=== PATIENT | male | born 1955 | race Caucasian/White ===

== ENCOUNTER 2023-01-09 06:43 | Inpatient (IN) | payer MEDICARE, OTHER ==
[2023-01-09 07:58] LABS: Actual Bicarbonate (HCO3v) 19 mEq/L (22-28); Base Excess -4.9 mEq/L (-2.0 to +3.0); Chloride (VBG) 96 mmol/L (98-106); Hemoglobin (Hb) 11.4 g/dL (12.6-17.4); Potassium (VBG) 4.66 mmol/L (3.70-5.30); Sodium 122.5 mmol/L (133-146); pH (venous) 7.42 (7.32-7.43)
[2023-01-09 08:33] LABS: ALT (SGPT) 41 U/L (8-55); AST (SGOT) 67 U/L (5-34); Albumin 2.8 g/dL (3.4-4.8); Alkaline Phosphatase 88 U/L (40-110); Anion Gap 13 mmol/L (10-20); BUN (Urea Nitrogen) 30 mg/dL (8.4-25.7); Bilirubin, Total 2.8 mg/dL (0.2-1.2); Calc. Creatinine Clearance 0 mL/min (70-130); Calcium 8.3 mg/dL (7.8-10.44); Carbon Dioxide 19 mmol/L (23-31); Chloride 96 mmol/L (98-107); Estimated GFR 81; Globulin 4.1 g/dL (2.4-3.5); Glucose 195 mg/dL (80-115); Lipase 90 U/L (8-78); Magnesium 1.8 mg/dL (1.6-2.6); Potassium 4.6 mmol/L (3.5-5.1); Protein, Total 6.9 g/dL (5.8-8.1); Sodium 123 mmol/L (136-145)
[2023-01-09 09:08] LABS: Band 9 % (5-11); Hemoglobin 10.5 g/dL (14.0-18.0); Lymphocytes 4 % (21-51); MDiff Complete? YES; Mean Corpuscular Hemoglobin 32.1 pg (27.0-31.0); Mean Corpuscular Volume 94.2 fl (78.0-98.0); Mean Platelet Volume 7.9 fL (7.4-10.4); Monocytes 16 % (0-10); Neutrophil 71 % (42-75); Platelet Count 118 10x3/uL (130-400); Platelet Morphology Comment Appears Decreased; Polychromasia SLIGHT = 2-3 cells (100X) (0-2/hpf); RBC Distribution Width 14.4 % (11.5-14.5); Red Blood Cell (RBC) Count 3.26 mill/uL (4.70-6.10)
[2023-01-09 09:08] LABS: Bacteria/HPF None Seen HPF (None Seen); Bilirubin Negative (Negative); Blood, Urine Trace (Negative); Clarity Clear (Clear); Glucose, Urine (Dipstick) Normal (Negative); Ketone, Urine Trace mg/dL (Negative); Leukocyte Negative Leu/uL (Negative); Nitrite Negative (Negative); Protein, Urine (Dipstick) 10 mg/dL (Neg-Trace); RBC/HPF 0-3 HPF (0-3); Specific Gravity, Urine 1.019 (1.002-1.036); Squamous Epithelial 0-3 HPF (0-3); Urobilinogen Normal mg/dL (Less than 2); WBC/HPF 0-3 HPF (0-3); pH, Urine 5.5 (5.0-9.0)
[2023-01-09 11:13] LABS: Lactic Acid 2.4 mmol/L (0.5-2.2)
[2023-01-09] MEDS ORDERED: Pantoprazole 40 MG VIAL ONE (13:37)
[2023-01-09 13:51] LABS: INR-International Normal Ratio 1.2; PTT 54.1 sec (22.9-36.1); Prothrombin Time 15.8 sec (12.0-14.7)
[2023-01-09] MEDS ORDERED: Iopamidol-370 76% 500 ML 1 ML ONE (14:15)
[2023-01-09 16:33] LABS: Anion Gap 14 mmol/L (10-20); BUN (Urea Nitrogen) 28 mg/dL (8.4-25.7); CK (CPK) 363 U/L (30-200); Calc. Creatinine Clearance 0 mL/min (70-130); Calcium 8.3 mg/dL (7.8-10.44); Carbon Dioxide 19 mmol/L (23-31); Chloride 96 mmol/L (98-107); Estimated GFR 95; Glucose 211 mg/dL (80-115); Potassium 4.5 mmol/L (3.5-5.1); Sodium 124 mmol/L (136-145)
[2023-01-09 16:53] LABS: HBCM Index 0.08 S/CO (0-0.79); Hep A IgM AB Non-Reactive (NonReactive); Hep A IgM S/CO 0.22 S/CO (0-0.79); Hep B Surf Ag Non-Reactive S/CO (NonReactive); Hep C IgG Ab Non-Reactive (NonReactive); Hep C Index 0.13 S/CO (0-0.79); Hepatitis B Core IgM Abs Non-Reactive (NonReactive)
[2023-01-09] MEDS ORDERED: Dextrose 5% in Water 1,000 ML IV PRN (17:35)
[2023-01-09] MEDS ORDERED: Dextrose 50% Abboject 50 ML SYRINGE SLOW IVP PRN (17:35)
[2023-01-09] MEDS: Acetaminophen 325 MG TAB PO PRN (18:30)
[2023-01-09] MEDS: Sodium Chloride 0.9% 1,000 ML IV SCH (18:30)
[2023-01-09] MEDS: cefTRIAXone\\ROCEPHIN 1 GM in Sodium Chloride 0.9% 100 ML IVPB SCH (18:30)
[2023-01-09] MEDS: Rifaximin 550 MG TAB PO SCH (21:09)
[2023-01-09 23:05] LABS: Anion Gap 14 mmol/L (10-20); BUN (Urea Nitrogen) 27 mg/dL (8.4-25.7); Calc. Creatinine Clearance 104 mL/min (70-130); Calcium 8.2 mg/dL (7.8-10.44); Carbon Dioxide 18 mmol/L (23-31); Chloride 100 mmol/L (98-107); Estimated GFR 80; Glucose 278 mg/dL (80-115); Potassium 4.4 mmol/L (3.5-5.1); Sodium 128 mmol/L (136-145)
[2023-01-10] MEDS: Sodium Chloride 0.9% 1,000 ML IV SCH ×3 (05:27→20:25)
[2023-01-10] MEDS: HumaLOG 300 UNITS/3 ML VIAL SC PRN ×4 (05:35→20:24)
[2023-01-10 07:41] LABS: Hemoglobin 10.5 g/dL (14.0-18.0); Mean Corpuscular HGB CONC 33.8 g/dL (32.0-36.0); Mean Corpuscular Hemoglobin 32.3 pg (27.0-31.0); Mean Corpuscular Volume 95.4 fl (78.0-98.0); RBC Distribution Width 14.5 % (11.5-14.5); Red Blood Cell (RBC) Count 3.26 mill/uL (4.70-6.10)
[2023-01-10 07:47] LABS: ALT (SGPT) 34 U/L (8-55); AST (SGOT) 41 U/L (5-34); Albumin 2.3 g/dL (3.4-4.8); Alkaline Phosphatase 92 U/L (40-110); Anion Gap 11 mmol/L (10-20); BUN (Urea Nitrogen) 25 mg/dL (8.4-25.7); Bilirubin, Total 1.7 mg/dL (0.2-1.2); Calc. Creatinine Clearance 115 mL/min (70-130); Calcium 8.3 mg/dL (7.8-10.44); Carbon Dioxide 20 mmol/L (23-31); Chloride 102 mmol/L (98-107); Estimated GFR 91; Glucose 326 mg/dL (80-115); Iron 24 ug/dL (65-175); Iron Binding Capacity, Total 184 mcg/dL (261-462); Protein, Total 6.3 g/dL (5.8-8.1); Sodium 129 mmol/L (136-145)
[2023-01-10 08:02] LABS: Ferritin 411.63 ng/mL (22-322)
[2023-01-10 08:04] LABS: HBSAB Concentration Less than 8.00 mIU/mL; Hep B Surf AB Non-Reactive (NonReactive)
[2023-01-10] MEDS: Rifaximin 550 MG TAB PO SCH ×2 (08:43→20:23)
[2023-01-10 10:53] LABS: Band 4 % (5-11); Lymphocytes 4 % (21-51); MDiff Complete? YES; Mean Platelet Volume 8.1 fL (7.4-10.4); Monocytes 16 % (0-10); Neutrophil 76 % (42-75); Platelet Count 113 10x3/uL (130-400); Platelet Morphology Comment Appears Decreased; Vacuoles SLIGHT; White Blood Cell (WBC) Count 10.1 10x3/uL (4.8-10.8)
[2023-01-10] MEDS: Bisacodyl 10 MG SUPP PR SCH ×2 (14:43→23:27)
[2023-01-10] MEDS: cefTRIAXone\\ROCEPHIN 1 GM in Sodium Chloride 0.9% 100 ML IVPB SCH (14:43)
[2023-01-10] MEDS ORDERED: Vancomycin HCl 1 GM in Sodium Chloride 0.9% 250 ML 250 ML IVPB SCH (15:00)
[2023-01-10 15:42] LABS: ANA Symphony (Qualitative) Negative (Negative); ANA Symphony (Quantitative) 0.5 Ratio (< 0.7 Negative); EliA Vaculitis New Method **** NEW METHOD ****; Mitochondrial Ab 1.6 U/mL (<4 Negative); dsDNA IgG Antibody 1.9 IU/mL (<10 Negative)
[2023-01-10] MEDS: Vancomycin 1.5 GRAM/300 ML BAG 1.5 GM in Premix Bag 1 BAG IVPB SCH (16:26)
[2023-01-10] MEDS: Melatonin 3 MG TAB PO PRN (23:27)
[2023-01-11] MEDS: Sodium Chloride 0.9% 1,000 ML IV SCH ×2 (02:02→10:25)
[2023-01-11] MEDS: Vancomycin 1.5 GRAM/300 ML BAG 1.5 GM in Premix Bag 1 BAG IVPB SCH ×2 (02:05→17:29)
[2023-01-11] MEDS ORDERED: Morphine 4 MG/ML VIAL SLOW IVP SCH (05:00)
[2023-01-11] MEDS ORDERED: traMADol HCl 50 MG TAB PO SCH (05:15)
[2023-01-11] MEDS: Bisacodyl 10 MG SUPP PR SCH ×3 (06:04→17:32)
[2023-01-11] MEDS: HumaLOG 300 UNITS/3 ML VIAL SC PRN ×4 (06:05→20:50)
[2023-01-11 07:06] LABS: Hemoglobin 10.8 g/dL (14.0-18.0); Mean Corpuscular HGB CONC 33.8 g/dL (32.0-36.0); Mean Corpuscular Hemoglobin 32.4 pg (27.0-31.0); Mean Corpuscular Volume 95.7 fl (78.0-98.0); Platelet Count 121 10x3/uL (130-400); RBC Distribution Width 14.5 % (11.5-14.5); Red Blood Cell (RBC) Count 3.34 mill/uL (4.70-6.10)
[2023-01-11 07:08] LABS: ALT (SGPT) 33 U/L (8-55); AST (SGOT) 33 U/L (5-34); Albumin 2.4 g/dL (3.4-4.8); Alkaline Phosphatase 94 U/L (40-110); Anion Gap 11 mmol/L (10-20); BUN (Urea Nitrogen) 23 mg/dL (8.4-25.7); Bilirubin, Total 1.3 mg/dL (0.2-1.2); Calc. Creatinine Clearance 119 mL/min (70-130); Calcium 8.1 mg/dL (7.8-10.44); Carbon Dioxide 21 mmol/L (23-31); Chloride 100 mmol/L (98-107); Estimated GFR 94; Globulin 3.9 g/dL (2.4-3.5); Glucose 287 mg/dL (80-115); Potassium 3.8 mmol/L (3.5-5.1); Protein, Total 6.3 g/dL (5.8-8.1); Sodium 128 mmol/L (136-145)
[2023-01-11 07:18] LABS: Hemoglobin A1c 7.4 % (4.0-6.0)
[2023-01-11 08:27] LABS: Band 24 % (5-11); Lymphocytes 9 % (21-51); MDiff Complete? YES; Metamyelocyte 1 % (0-0); Monocytes 10 % (0-10); Myelocyte 1 % (0-0); Neutrophil 54 % (42-75); Platelet Morphology Comment Appears Decreased; RBC Morphology Normal; Reactive Lymphocytes 1 % (0-10)
[2023-01-11] MEDS: Rifaximin 550 MG TAB PO SCH ×2 (10:17→20:50)
[2023-01-11] MEDS ORDERED: Mineral Oil ENEMA PR SCH (12:45)
[2023-01-11 14:37] LABS: Alpha-1-Antitrypsin 228 mg/dL (101-187)
[2023-01-11] MEDS: cefTRIAXone\\ROCEPHIN 1 GM in Sodium Chloride 0.9% 100 ML IVPB SCH (16:17)
[2023-01-11] MEDS: Melatonin 3 MG TAB PO PRN (20:50)
[2023-01-12 02:03] LABS: #Eosinphils 0.1 thou/uL (0.0-0.7); #Lymphocytes 1.1 thou/uL (1.20-3.40); #Monocytes 1.6 thou/uL (0.11-0.59); #Neutrophils 8.2 thou/uL (1.40-6.50); %Basophils 0.1 % (0.0-1.0); %Lymphocytes 9.6 % (21.0-51.0); %Monocytes 14.4 % (0.0-10.0); %Neutrophils 74.9 % (42.0-75.0); Hemoglobin 10.9 g/dL (14.0-18.0); Mean Corpuscular HGB CONC 34.1 g/dL (32.0-36.0); Mean Corpuscular Hemoglobin 32.5 pg (27.0-31.0); Mean Corpuscular Volume 95.1 fl (78.0-98.0); Mean Platelet Volume 8.1 fL (7.4-10.4); Platelet Count 146 10x3/uL (130-400); RBC Distribution Width 14.3 % (11.5-14.5); Red Blood Cell (RBC) Count 3.35 mill/uL (4.70-6.10); White Blood Cell (WBC) Count 10.9 10x3/uL (4.8-10.8)
[2023-01-12 02:23] LABS: Vancomycin, Trough 20.3 ug/mL
[2023-01-12 02:38] LABS: Anion Gap 14 mmol/L (10-20); BUN (Urea Nitrogen) 20 mg/dL (8.4-25.7); Calc. Creatinine Clearance 115 mL/min (70-130); Carbon Dioxide 17 mmol/L (23-31); Chloride 103 mmol/L (98-107); Estimated GFR 91; Glucose 282 mg/dL (80-115); Potassium 3.6 mmol/L (3.5-5.1); Sodium 130 mmol/L (136-145)
[2023-01-12] MEDS: VANCOMYCIN 1.25 GM/250 ML BAG 1.25 GM in Premix Bag 1 BAG IVPB SCH ×2 (03:03→16:16)
[2023-01-12] MEDS: Bisacodyl 10 MG SUPP PR SCH ×4 (05:18→23:04)
[2023-01-12] MEDS: HumaLOG 300 UNITS/3 ML VIAL SC PRN ×4 (06:10→20:49)
[2023-01-12] MEDS: Rifaximin 550 MG TAB PO SCH ×2 (08:27→20:44)
[2023-01-12 11:15] LABS: Smooth Muscle Total ABS 7 Units (0-19)
[2023-01-12] MEDS ORDERED: Insulin Glargine 30 UNITS/0.3 ML VIAL SC SCH ×2 (14:15→21:00)
[2023-01-12] MEDS ORDERED: Senokot S 8.6-50 MG TAB PO SCH (15:00)
[2023-01-12] MEDS ORDERED: Mineral Oil ENEMA PR SCH (15:00)
[2023-01-12] MEDS: cefTRIAXone\\ROCEPHIN 1 GM in Sodium Chloride 0.9% 100 ML IVPB SCH (15:04)
[2023-01-12] MEDS: Senokot S 8.6-50 MG TAB PO SCH (20:44)
[2023-01-13] MEDS: Acetaminophen 325 MG TAB PO PRN (05:24)
[2023-01-13] MEDS: HumaLOG 300 UNITS/3 ML VIAL SC PRN ×4 (05:24→20:15)
[2023-01-13 07:38] LABS: Anion Gap 12 mmol/L (10-20); BUN (Urea Nitrogen) 17 mg/dL (8.4-25.7); Calc. Creatinine Clearance 131 mL/min (70-130); Carbon Dioxide 19 mmol/L (23-31); Chloride 102 mmol/L (98-107); Estimated GFR 97; Glucose 264 mg/dL (80-115); Hemoglobin 10.5 g/dL (14.0-18.0); Mean Corpuscular HGB CONC 34.2 g/dL (32.0-36.0); Mean Corpuscular Hemoglobin 32.3 pg (27.0-31.0); Mean Corpuscular Volume 94.4 fl (78.0-98.0); Mean Platelet Volume 7.5 fL (7.4-10.4); Platelet Count 156 10x3/uL (130-400); Potassium 3.8 mmol/L (3.5-5.1); RBC Distribution Width 14.2 % (11.5-14.5); Red Blood Cell (RBC) Count 3.26 mill/uL (4.70-6.10); Sodium 129 mmol/L (136-145); White Blood Cell (WBC) Count 11.9 10x3/uL (4.8-10.8)
[2023-01-13 08:36] LABS: Band 14 % (5-11); Eosinophils 1 % (0-10); Lymphocytes 10 % (21-51); MDiff Complete? YES; Monocytes 13 % (0-10); Neutrophil 62 % (42-75); Platelet Morphology Comment Appears Adequate; Polychromasia SLIGHT = 2-3 cells (100X) (0-2/hpf)
[2023-01-13] MEDS: Senokot S 8.6-50 MG TAB PO SCH ×2 (08:47→20:13)
[2023-01-13] MEDS: Rifaximin 550 MG TAB PO SCH ×2 (08:47→20:13)
[2023-01-13] MEDS: Bisacodyl 10 MG SUPP PR SCH ×3 (08:54→20:16)
[2023-01-13] MEDS ORDERED: Insulin Glargine 30 UNITS/0.3 ML VIAL SC SCH (09:00)
[2023-01-13] MEDS ORDERED: cefTRIAXone\\ROCEPHIN 2 GM in Sodium Chloride 0.9% 100 ML IVPB SCH (15:00)
[2023-01-13] MEDS: Melatonin 3 MG TAB PO PRN (20:13)
[2023-01-13] MEDS: Insulin Glargine 30 UNITS/0.3 ML VIAL SC SCH (20:14)
[2023-01-14] MEDS: Bisacodyl 10 MG SUPP PR SCH ×3 (07:19→23:11)
[2023-01-14] MEDS: HumaLOG 300 UNITS/3 ML VIAL SC PRN (07:19)
[2023-01-14 07:37] LABS: Hemoglobin 10.9 g/dL (14.0-18.0); Mean Corpuscular HGB CONC 34.2 g/dL (32.0-36.0); Mean Corpuscular Hemoglobin 32.5 pg (27.0-31.0); Mean Corpuscular Volume 94.9 fl (78.0-98.0); Mean Platelet Volume 7.6 fL (7.4-10.4); Platelet Count 223 10x3/uL (130-400); RBC Distribution Width 14.5 % (11.5-14.5); Red Blood Cell (RBC) Count 3.36 mill/uL (4.70-6.10); White Blood Cell (WBC) Count 14.6 10x3/uL (4.8-10.8)
[2023-01-14 07:56] LABS: ALT (SGPT) 65 U/L (8-55); AST (SGOT) 75 U/L (5-34); Albumin 2.2 g/dL (3.4-4.8); Alkaline Phosphatase 153 U/L (40-110); Anion Gap 12 mmol/L (10-20); BUN (Urea Nitrogen) 16 mg/dL (8.4-25.7); Bilirubin, Total 1.4 mg/dL (0.2-1.2); Calc. Creatinine Clearance 134 mL/min (70-130); Calcium 8.3 mg/dL (7.8-10.44); Carbon Dioxide 20 mmol/L (23-31); Chloride 102 mmol/L (98-107); Estimated GFR 98; Globulin 4.4 g/dL (2.4-3.5); Glucose 181 mg/dL (80-115); Lipase 59 U/L (8-78); Protein, Total 6.6 g/dL (5.8-8.1); Sodium 130 mmol/L (136-145)
[2023-01-14 08:05] LABS: Band 10 % (5-11); Eosinophils 1 % (0-10); Lymphocytes 9 % (21-51); MDiff Complete? YES; Monocytes 11 % (0-10); Myelocyte 1 % (0-0); Neutrophil 67 % (42-75); Platelet Morphology Comment Appears Adequate; Polychromasia SLIGHT = 2-3 cells (100X) (0-2/hpf); Reactive Lymphocytes 1 % (0-10); Toxic Granulation SLIGHT
[2023-01-14] MEDS: Insulin Glargine 30 UNITS/0.3 ML VIAL SC SCH ×2 (09:27→22:28)
[2023-01-14] MEDS: Senokot S 8.6-50 MG TAB PO SCH ×2 (09:28→22:49)
[2023-01-14] MEDS: Rifaximin 550 MG TAB PO SCH ×2 (09:29→22:28)
[2023-01-14] MEDS ORDERED: metroNIDAZOLE 500 MG in Premix Bag 1 BAG IVPB SCH (15:00)
[2023-01-14] MEDS ORDERED: Piperacillin/Tazobactam 3.375 GM in Sodium Chloride 0.9% 100 ML IVPB SCH ×4 (15:00→20:00)
[2023-01-14 15:26] LABS: Lactic Acid 1.6 mmol/L (0.5-2.2)
[2023-01-14] MEDS ORDERED: Midazolam HCl 2 mg/2 ml Vial ONE (15:46)
[2023-01-14] MEDS ORDERED: Fentanyl 250 MCG/5 ML VIAL ONE (15:46)
[2023-01-14] MEDS ORDERED: Albumin 5% 1,000 ML ONE (15:47)
[2023-01-14] MEDS ORDERED: Dexmedetomidine 200 MCG/2 ML VIAL ONE (15:47)
[2023-01-14 16:41] LABS: Prothrombin Time Greater than 150.0 sec (12.0-14.7)
[2023-01-14 16:42] LABS: PTT Greater than 250.0 sec (22.9-36.1)
[2023-01-14] MEDS ORDERED: Lidocaine 1% PF 5 ML VIAL ONE (16:47)
[2023-01-14] MEDS ORDERED: PROPOFOL 200 MG/20 ML VIAL ONE (16:47)
[2023-01-14] MEDS ORDERED: Succinylcholine Chloride 100 MG/5 ML SYRINGE FS ONE (16:47)
[2023-01-14] MEDS ORDERED: Rocuronium Bromide 10 MG/ML (10ML VIAL) ONE (16:47)
[2023-01-14] MEDS ORDERED: PHENYLEPHRINE-NS 100 MCG/ML 10 ML SYRINGE ONE (16:47)
[2023-01-14 17:55] LABS: INR-International Normal Ratio 1.4; Prothrombin Time 17.6 sec (12.0-14.7)
[2023-01-14 17:56] LABS: PTT 53.2 sec (22.9-36.1)
[2023-01-14] MEDS ORDERED: Phytonadione 10 MG/ML AMP SLOW IVP SCH (18:30)
[2023-01-14] MEDS ORDERED: Propofol 1,000 MG/100 ML VIAL IV ONE (19:04)
[2023-01-14 19:10] LABS: Base Excess (BEa) -1.5 mEq/L (-2.0 to +3.0); CO2 Tension 37.7 mmHg (35.0-45.0); Calcium, Ionized (arterial) 1.09 mmol/L (1.12-1.30); Carboxyhemoglobin (COHb) 0.5 gm% (0.0-3.0); Hemoglobin (Hb) 8.9 g/dL (14.0-18.0); O2 Tension (PaO2), arterial 85.4 mmHg (> 80.0); Potassium - ABG Lab 4.16 mmol/L (3.70-5.30)
[2023-01-14 19:11] LABS: Puncture Site Arterial Line
[2023-01-14 19:12] LABS: ALV-art Gradient 152.675 mmHg (0-20)
[2023-01-14 19:21] LABS: #Eosinphils 0.1 thou/uL (0.0-0.7); #Lymphocytes 0.6 thou/uL (1.20-3.40); #Monocytes 0.7 thou/uL (0.11-0.59); #Neutrophils 5.5 thou/uL (1.40-6.50); %Basophils 0.1 % (0.0-1.0); %Eosinophils 1.8 % (0.0-10.0); %Lymphocytes 8.8 % (21.0-51.0); %Monocytes 9.7 % (0.0-10.0); %Neutrophils 79.7 % (42.0-75.0); Hemoglobin 8.1 g/dL (14.0-18.0); Mean Corpuscular HGB CONC 33.8 g/dL (32.0-36.0); Mean Corpuscular Hemoglobin 32.3 pg (27.0-31.0); Mean Corpuscular Volume 95.6 fl (78.0-98.0); Platelet Count 127 10x3/uL (130-400); RBC Distribution Width 14.4 % (11.5-14.5); Red Blood Cell (RBC) Count 2.52 mill/uL (4.70-6.10); White Blood Cell (WBC) Count 6.9 10x3/uL (4.8-10.8)
[2023-01-14] MEDS ORDERED: Morphine 2 MG/ML VIAL SLOW IVP PRN (20:15)
[2023-01-14] MEDS ORDERED: Propofol BOLUS 1,000 MG/100 ML VIAL IV PRN (20:15)
[2023-01-14] MEDS ORDERED: DISCONTINUE PREVIOUS NARCOTIC PAIN MEDICATIONS AND BENZODIAZEPINES FS SCH (20:15)
[2023-01-14] MEDS ORDERED: Propofol 1,000 MG/100 ML VIAL IV PRN (20:15)
[2023-01-14] MEDS ORDERED: Lorazepam 2 MG/ML VIAL SLOW IVP PRN (20:15)
[2023-01-14] MEDS ORDERED: Fentanyl CADD 100 ML IV SCH (20:15)
[2023-01-14] MEDS ORDERED: Fentanyl BOLUS 250 ML IVPB PRN (20:15)
[2023-01-14] MEDS: Sodium Chloride 0.9% 1,000 ML IV SCH (20:48)
[2023-01-14] MEDS: Famotidine/PF 20 mg/2ml Vial SLOW IVP SCH (22:27)
[2023-01-14 23:48] LABS: #Basophils 0.1 thou/uL (0.0-0.2); #Eosinphils 0.1 thou/uL (0.0-0.7); #Lymphocytes 0.9 thou/uL (1.20-3.40); #Monocytes 0.7 thou/uL (0.11-0.59); #Neutrophils 5.5 thou/uL (1.40-6.50); %Basophils 1.9 % (0.0-1.0); %Eosinophils 1.1 % (0.0-10.0); %Lymphocytes 12.4 % (21.0-51.0); %Neutrophils 75.7 % (42.0-75.0); Hemoglobin 8.2 g/dL (14.0-18.0); Mean Corpuscular HGB CONC 34.3 g/dL (32.0-36.0); Mean Corpuscular Hemoglobin 32.7 pg (27.0-31.0); Mean Corpuscular Volume 95.3 fl (78.0-98.0); Mean Platelet Volume 7.5 fL (7.4-10.4); Platelet Count 121 10x3/uL (130-400); RBC Distribution Width 14.4 % (11.5-14.5); White Blood Cell (WBC) Count 7.3 10x3/uL (4.8-10.8)
[2023-01-14 23:59] LABS: INR-International Normal Ratio 1.3; Prothrombin Time 16.8 sec (12.0-14.7)
[2023-01-15] LABS: PTT 47.1 sec (22.9-36.1)
[2023-01-15] MEDS: Sodium Chloride 0.9% 1,000 ML IV SCH ×3 (00:19→18:14)
[2023-01-15] MEDS: Piperacillin/Tazobactam 3.375 GM in Sodium Chloride 0.9% 100 ML IVPB SCH ×3 (03:04→20:39)
[2023-01-15 03:53] LABS: #Basophils 0.2 thou/uL (0.0-0.2); #Eosinphils 0.1 thou/uL (0.0-0.7); #Lymphocytes 0.8 thou/uL (1.20-3.40); #Monocytes 0.7 thou/uL (0.11-0.59); #Neutrophils 5.6 thou/uL (1.40-6.50); %Basophils 2.2 % (0.0-1.0); %Eosinophils 1.4 % (0.0-10.0); %Lymphocytes 10.6 % (21.0-51.0); %Monocytes 9.9 % (0.0-10.0); Hemoglobin 8.5 g/dL (14.0-18.0); Mean Corpuscular Hemoglobin 32.4 pg (27.0-31.0); Mean Corpuscular Volume 95.3 fl (78.0-98.0); Mean Platelet Volume 7.5 fL (7.4-10.4); Platelet Count 120 10x3/uL (130-400); RBC Distribution Width 14.4 % (11.5-14.5); Red Blood Cell (RBC) Count 2.63 mill/uL (4.70-6.10); White Blood Cell (WBC) Count 7.4 10x3/uL (4.8-10.8)
[2023-01-15 04:12] LABS: ALT (SGPT) 37 U/L (8-55); AST (SGOT) 36 U/L (5-34); Albumin 2.5 g/dL (3.4-4.8); Alkaline Phosphatase 90 U/L (40-110); Anion Gap 8 mmol/L (10-20); BUN (Urea Nitrogen) 16 mg/dL (8.4-25.7); Bilirubin, Total 1.3 mg/dL (0.2-1.2); Calc. Creatinine Clearance 143 mL/min (70-130); Calcium 7.9 mg/dL (7.8-10.44); Carbon Dioxide 24 mmol/L (23-31); Chloride 108 mmol/L (98-107); Estimated GFR 100; Globulin 3.3 g/dL (2.4-3.5); Glucose 162 mg/dL (80-115); Potassium 3.9 mmol/L (3.5-5.1); Protein, Total 5.8 g/dL (5.8-8.1); Sodium 136 mmol/L (136-145)
[2023-01-15] MEDS: Bisacodyl 10 MG SUPP PR SCH ×3 (07:10→22:34)
[2023-01-15 07:34] LABS: Magnesium 2.1 mg/dL (1.6-2.6); Phosphorus 2.8 mg/dL (2.3-4.7)
[2023-01-15] MEDS: Famotidine/PF 20 mg/2ml Vial SLOW IVP SCH ×2 (08:48→20:46)
[2023-01-15] MEDS: Rifaximin 550 MG TAB PO SCH ×2 (08:48→20:47)
[2023-01-15] MEDS: Senokot S 8.6-50 MG TAB PO SCH ×2 (08:51→20:46)
[2023-01-15] MEDS: Insulin Glargine 30 UNITS/0.3 ML VIAL SC SCH ×2 (08:52→21:12)
[2023-01-15] MEDS ORDERED: Sodium Phosphate 15 MMOL in Sodium Chloride 0.9% 250 ML 250 ML IVPB SCH (09:00)
[2023-01-15] MEDS ORDERED: Morphine 2 MG/ML VIAL SLOW IVP PRN (09:04)
[2023-01-15] MEDS ORDERED: Morphine 4 MG/ML VIAL SLOW IVP PRN (09:04)
[2023-01-15 10:38] LABS: INR-International Normal Ratio 1.2; PTT 47.5 sec (22.9-36.1)
[2023-01-15 13:48] VITALS: BMI 35.2
[2023-01-15] MEDS: Melatonin 3 MG TAB PO PRN (20:46)
[2023-01-16] MEDS: Sodium Chloride 0.9% 1,000 ML IV SCH (02:52)
[2023-01-16] MEDS: Piperacillin/Tazobactam 3.375 GM in Sodium Chloride 0.9% 100 ML IVPB SCH ×3 (04:20→22:53)
[2023-01-16 04:49] LABS: #Eosinphils 0.1 thou/uL (0.0-0.7); #Lymphocytes 0.7 thou/uL (1.20-3.40); #Monocytes 0.8 thou/uL (0.11-0.59); #Neutrophils 5.2 thou/uL (1.40-6.50); %Basophils 0.2 % (0.0-1.0); %Eosinophils 1.1 % (0.0-10.0); %Lymphocytes 10.3 % (21.0-51.0); %Monocytes 12.1 % (0.0-10.0); %Neutrophils 76.2 % (42.0-75.0); Hemoglobin 8.7 g/dL (14.0-18.0); Mean Corpuscular HGB CONC 33.9 g/dL (32.0-36.0); Mean Corpuscular Hemoglobin 32.9 pg (27.0-31.0); Mean Platelet Volume 7.5 fL (7.4-10.4); Platelet Count 142 10x3/uL (130-400); RBC Distribution Width 14.6 % (11.5-14.5); Red Blood Cell (RBC) Count 2.64 mill/uL (4.70-6.10); White Blood Cell (WBC) Count 6.9 10x3/uL (4.8-10.8)
[2023-01-16 05:15] LABS: ALT (SGPT) 32 U/L (8-55); AST (SGOT) 30 U/L (5-34); Albumin 2.3 g/dL (3.4-4.8); Alkaline Phosphatase 83 U/L (40-110); Anion Gap 11 mmol/L (10-20); BUN (Urea Nitrogen) 16 mg/dL (8.4-25.7); Bilirubin, Total 1.6 mg/dL (0.2-1.2); Calc. Creatinine Clearance 150 mL/min (70-130); Carbon Dioxide 22 mmol/L (23-31); Chloride 113 mmol/L (98-107); Estimated GFR 100; Globulin 3.6 g/dL (2.4-3.5); Glucose 95 mg/dL (80-115); Magnesium 2.2 mg/dL (1.6-2.6); Phosphorus 2.6 mg/dL (2.3-4.7); Potassium 3.8 mmol/L (3.5-5.1); Protein, Total 5.9 g/dL (5.8-8.1); Sodium 142 mmol/L (136-145)
[2023-01-16] MEDS ORDERED: Potassium Phosphate 15 MMOL in Sodium Chloride 0.9% 100 ML IVPB SCH (07:30)
[2023-01-16] MEDS: Spironolactone 25 MG TAB PO SCH ×2 (07:57→16:27)
[2023-01-16] MEDS: Furosemide 40 MG TAB PO SCH (07:57)
[2023-01-16] MEDS ORDERED: traMADol HCl 50 MG TAB PO PRN (07:58)
[2023-01-16] MEDS ORDERED: Morphine 4 MG/ML VIAL SLOW IVP PRN (07:58)
[2023-01-16] MEDS: Bisacodyl 10 MG SUPP PR SCH ×3 (08:01→22:55)
[2023-01-16] MEDS: Senokot S 8.6-50 MG TAB PO SCH ×2 (08:27→22:55)
[2023-01-16] MEDS: Rifaximin 550 MG TAB PO SCH ×2 (08:27→22:58)
[2023-01-16] MEDS: Insulin Glargine 30 UNITS/0.3 ML VIAL SC SCH ×2 (08:29→22:55)
[2023-01-16] MEDS: Famotidine/PF 20 mg/2ml Vial SLOW IVP SCH ×2 (08:32→22:54)
[2023-01-17] MEDS: Piperacillin/Tazobactam 3.375 GM in Sodium Chloride 0.9% 100 ML IVPB SCH ×3 (04:30→21:08)
[2023-01-17 07:52] LABS: #Eosinphils 0.1 thou/uL (0.0-0.7); #Lymphocytes 0.7 thou/uL (1.20-3.40); #Monocytes 0.8 thou/uL (0.11-0.59); %Basophils 0.2 % (0.0-1.0); %Eosinophils 1.6 % (0.0-10.0); %Lymphocytes 10.9 % (21.0-51.0); %Neutrophils 75.3 % (42.0-75.0); Hemoglobin 8.9 g/dL (14.0-18.0); Mean Corpuscular HGB CONC 33.8 g/dL (32.0-36.0); Mean Corpuscular Hemoglobin 32.8 pg (27.0-31.0); Mean Corpuscular Volume 97.1 fl (78.0-98.0); Mean Platelet Volume 6.9 fL (7.4-10.4); Platelet Count 160 10x3/uL (130-400); RBC Distribution Width 14.4 % (11.5-14.5); Red Blood Cell (RBC) Count 2.71 mill/uL (4.70-6.10); White Blood Cell (WBC) Count 6.6 10x3/uL (4.8-10.8)
[2023-01-17 08:18] LABS: ALT (SGPT) 31 U/L (8-55); AST (SGOT) 26 U/L (5-34); Albumin 2.3 g/dL (3.4-4.8); Alkaline Phosphatase 87 U/L (40-110); Anion Gap 10 mmol/L (10-20); BUN (Urea Nitrogen) 15 mg/dL (8.4-25.7); Bilirubin, Total 1.6 mg/dL (0.2-1.2); Calc. Creatinine Clearance 138 mL/min (70-130); Calcium 8.3 mg/dL (7.8-10.44); Carbon Dioxide 23 mmol/L (23-31); Chloride 110 mmol/L (98-107); Estimated GFR 97; Glucose 124 mg/dL (80-115); Potassium 3.7 mmol/L (3.5-5.1); Protein, Total 6.3 g/dL (5.8-8.1); Sodium 139 mmol/L (136-145)
[2023-01-17] MEDS: Spironolactone 25 MG TAB PO SCH ×2 (08:31→16:14)
[2023-01-17] MEDS: Bisacodyl 10 MG SUPP PR SCH ×2 (08:31→16:14)
[2023-01-17] MEDS: Furosemide 40 MG TAB PO SCH (08:31)
[2023-01-17] MEDS: Famotidine/PF 20 mg/2ml Vial SLOW IVP SCH ×2 (08:31→21:10)
[2023-01-17] MEDS: Senokot S 8.6-50 MG TAB PO SCH ×2 (08:32→21:09)
[2023-01-17] MEDS: Rifaximin 550 MG TAB PO SCH ×2 (08:32→21:09)
[2023-01-17] MEDS: Insulin Glargine 30 UNITS/0.3 ML VIAL SC SCH ×2 (08:33→21:08)
[2023-01-17] MEDS: HumaLOG 300 UNITS/3 ML VIAL SC PRN ×2 (11:43→17:20)
[2023-01-18] MEDS: Bisacodyl 10 MG SUPP PR SCH ×4 (01:10→23:34)
[2023-01-18] MEDS: Piperacillin/Tazobactam 3.375 GM in Sodium Chloride 0.9% 100 ML IVPB SCH ×3 (04:55→20:57)
[2023-01-18] MEDS: Furosemide 40 MG TAB PO SCH (06:03)
[2023-01-18] MEDS: traMADol HCl 50 MG TAB PO PRN (08:53)
[2023-01-18] MEDS: Famotidine/PF 20 mg/2ml Vial SLOW IVP SCH ×2 (08:56→20:58)
[2023-01-18] MEDS: Rifaximin 550 MG TAB PO SCH ×2 (08:56→20:58)
[2023-01-18] MEDS: Spironolactone 25 MG TAB PO SCH (08:56)
[2023-01-18] MEDS: Senokot S 8.6-50 MG TAB PO SCH ×2 (08:57→20:58)
[2023-01-18] MEDS: Insulin Glargine 30 UNITS/0.3 ML VIAL SC SCH ×3 (08:57→20:58)
[2023-01-19] MEDS: Piperacillin/Tazobactam 3.375 GM in Sodium Chloride 0.9% 100 ML IVPB SCH ×2 (04:42→12:14)
[2023-01-19] MEDS: traMADol HCl 50 MG TAB PO PRN (05:36)
[2023-01-19] MEDS: Furosemide 40 MG TAB PO SCH (07:25)
[2023-01-19] MEDS: Bisacodyl 10 MG SUPP PR SCH ×2 (07:25→17:57)
[2023-01-19 07:34] LABS: Anion Gap 10 mmol/L (10-20); BUN (Urea Nitrogen) 14 mg/dL (8.4-25.7); Calc. Creatinine Clearance 135 mL/min (70-130); Calcium 8.4 mg/dL (7.8-10.44); Carbon Dioxide 24 mmol/L (23-31); Chloride 107 mmol/L (98-107); Estimated GFR 97; Glucose 106 mg/dL (80-115); Potassium 3.6 mmol/L (3.5-5.1); Sodium 137 mmol/L (136-145)
[2023-01-19] MEDS ORDERED: Sodium Bicarbonate 2.5 MEQ/5 ML VIAL ONE (07:44)
[2023-01-19] MEDS ORDERED: Lidocaine 1% PF 5 ML VIAL ONE (07:44)
[2023-01-19] MEDS ORDERED: Spironolactone 25 MG TAB PO SCH (08:00)
[2023-01-19] MEDS: Famotidine/PF 20 mg/2ml Vial SLOW IVP SCH (09:23)
[2023-01-19] MEDS: Insulin Glargine 30 UNITS/0.3 ML VIAL SC SCH (09:24)
[2023-01-19] MEDS: Rifaximin 550 MG TAB PO SCH (09:24)
[2023-01-19] MEDS: Senokot S 8.6-50 MG TAB PO SCH (09:39)
[2023-01-19 15:59] VITALS: BP 145/85; TEMP 97.3
== END 2023-01-19 17:00 | disposition home health service (06) | DRG 853 ==
LOC: ERS 06:43 → T4-A 13:30 → CCU 01-14 18:54 → SJJU 01-16 10:36
PROVIDERS: ADMIT Internal Medicine; ATTEND Internal Medicine
PROC: 3E03329 Introduction of Other Anti-infective into Peripheral Vein, Percutaneous Approach (ICD-10-PCS; 2023-01-09)
PROC: 0W9G0ZZ Drainage of Peritoneal Cavity, Open Approach (ICD-10-PCS; principal; 2023-01-14)
PROC: 0W9G3ZZ Drainage of Peritoneal Cavity, Percutaneous Approach (ICD-10-PCS; 2023-01-19)
DX: A40.9 Streptococcal sepsis, unspecified (principal); G93.41 Metabolic encephalopathy; K55.059 Acute (reversible) ischemia of intestine, part and extent unspecified; E87.1 Hypo-osmolality and hyponatremia; E87.20 Acidosis, unspecified; K56.7 Ileus, unspecified; K70.31 Alcoholic cirrhosis of liver with ascites; K76.82 Hepatic encephalopathy; E78.5 Hyperlipidemia, unspecified; E86.0 Dehydration; E88.09 Other disorders of plasma-protein metabolism, not elsewhere classified; D69.6 Thrombocytopenia, unspecified; D73.5 Infarction of spleen; H10.31 Unspecified acute conjunctivitis, right eye; I12.9 Hypertensive chronic kidney disease with stage 1 through stage 4 chronic kidney disease, or unspecified chronic kidney disease; N18.1 Chronic kidney disease, stage 1; D63.1 Anemia in chronic kidney disease; K59.00 Constipation, unspecified; E11.22 Type 2 diabetes mellitus with diabetic chronic kidney disease; K63.89 Other specified diseases of intestine; Z79.82 Long term (current) use of aspirin; Z79.899 Other long term (current) drug therapy
CPT/HCPCS: 36415; 36416; 36430; 49083; 70450; 71045; 71275; 74176; 74177; 80048; 80053; 80074; 80202; 81003; 81015; 82103; 82105; 82140; 82550; 82728; 82805; 83036; 83516; 83540; 83550; 83605; 83690; 83735; 83880; 83930; 83935; 84100; 84300; 84443; 84484; 85025; 85379; 85384; 85610; 85730; 86015; 86038; 86225; 86706; 86708; 86850; 86900; 86901; 87040; 87077; 87086; 87149; 87186; 87811; 93005; 93306; 93970; 94002; 96374; 97139; C1751; C9113; J0696; J1650; J1815; J2250; J2543; J2704; J3010; J3370; J3430; J3490; J7050; P9045; P9059; Q9967; S0028; U0003; U0005

== ENCOUNTER 2023-05-20 06:30 | Day surgery (SDC) | payer MEDICARE ==
[2023-05-18 11:32] VITALS: BMI 28.7
[~2023-05-20 06:30] MED LIST: Enoxaparin 25 MG, EPINEPHrine 0.3 MG in Ophthalmic Irrigation Solution 500 ML FS SCH; Midazolam HCl 2 mg/2 ml Vial ONE; fentaNYL 50 mcg/mL 1 mL Vial ONE
[2023-05-20] MEDS ORDERED: PHENYLephrine 2.5% Ophth Soln 15 ml Bottle ONE (07:03)
[2023-05-20] MEDS ORDERED: Cyclopentolate 1% Opth Drop 2 ML BOT ONE (07:03)
[2023-05-20] MEDS ORDERED: PROPOFOL 200 MG/20 ML VIAL ONE (08:53)
[2023-05-20] MEDS ORDERED: Maxitrol 0.1% Opth Oint 3.5 GM TUBE ONE (08:53)
[2023-05-20] MEDS ORDERED: TISSUEBLUE 0.5 ML SYRINGE IO ONE (08:53)
[2023-05-20] MEDS ORDERED: CEFAZOLIN 1 GM VIAL ONE (08:53)
[2023-05-20] MEDS ORDERED: Lidocaine 4% PF 5 ML AMP ONE (08:53)
[2023-05-20] MEDS ORDERED: Bupivacaine 0.75% 10 ML VIAL ONE (08:53)
[2023-05-20] MEDS ORDERED: Lidocaine 1% PF 5 ML VIAL ONE (08:53)
[2023-05-20] MEDS ORDERED: Triamcinolone 40 MG/ML VIAL ONE (08:53)
== END 2023-05-20 11:00 | disposition home or self-care (01) ==
LOC: SDC 06:30
PROVIDERS: ATTEND Ophthalmology Retina Specialist
PROC: 08T43ZZ Resection of Right Vitreous, Percutaneous Approach (ICD-10-PCS; principal; 2023-05-20)
DX: H33.41 Traction detachment of retina, right eye (principal)
CPT/HCPCS: 67113; J3010; C1814; J0171; J0690; J1650; J2250; J2704; J3301; J3490